=== PATIENT | female | born 1960 | race Caucasian/White ===

== ENCOUNTER 2021-09-26 04:01 | Inpatient (IN) | payer MEDICARE, SELFPAY ==
[2021-09-26] VITALS (47 sets, daily range): BP systolic 111–160; BP diastolic 55–142; PULSE 78–111; RESP 14–35; TEMP 36.1–37.6; O2SAT 89–99; BMI 27.4
--- NOTE | ~2021-09-26 | XR_ITS ---
XR chest 1V portable DATE: 09/26/2021 05:19 INDICATION: Hypoxia, respiratory distress. Cough. TECHNIQUE: Portable upright AP chest on 09/26/2021 at 0508 hours COMPARISON: None FINDINGS: Normal heart size. The lungs appear mildly hyperinflated but clear of infiltrate or consoli dation. No pulmonary infiltrate or consolidation, pleural effusion or pulmonary vascular congestion o r pneumothorax. Osteopenia. IMPRESSION: No active cardiopulmonary disease Reviewed, dictated and finalized at location A.
--- NOTE | 2021-09-26 04:18 | ECG_ITS ---
Measurements Intervals [place] Rate: 97 P: 62 MS: 141 QRS: -1 QRSD: 88 T: 70 QT: 325 QTc: 414 Interpretive Statements SINUS RHYTHM POSSIBLE LEFT ATRIAL ENLARGEMENT RSR' IN V1 OR V2, PROBABLY NORMAL VARIANT BASELINE ARTIFACT- I, II, III, AVR, AVL, AVF, V6 BORDERLINE ECG Electronically Signed On 09-26-2021 7:49:22 CDT by Lester Engle D.O.
--- NOTE | 2021-09-26 04:22 | ED.SOB ---
HPI - SOB/Dyspnea General Chief Complaint: Shortness of Breath/Dyspnea Stated Complaint: SOB Time Seen by Provider: 09/26/21 04:18 History of Present Illness HPI Narrative: 61-year-old female presents here stating that she caught a cold about 2 days ago, has been having a cough, and steadily has been having more difficulty breathing, before she finally came in here. She states that this happens several times a year where she needs to be admitted for treatment. Endorses some chest tightness and wheezing but no nausea or vomiting, does have some chills, no lower extremity swelling or pain. Related Data Allergies Allergy/AdvReac Type Severity Reaction Status Date / Time Penicillins Allergy Unknown Verified 09/26/21 04:11 Review of Systems Review of Systems: CONST: Chills. HEENT: No sore throat C/V: Chest tightness RESP: Cough and difficulty breathing GI: No nausea or vomiting : No dysuria. M/S: No joint pain. SKIN: No rash. NEURO: [No headache or focal numbness or weakness] PSYCH: [No depression] [facility] Past Medical History Medical History (Updated 09/26/21 @ 04:37 by Danay Boone MD) COPD (chronic obstructive pulmonary disease) Social History Social History (Updated 09/26/21 @ 04:25 by Danay Boone MD) Smoking status: Current every day smoker Exam Narrative: EXAMINATION OF ORGAN SYSTEMS/BODY AREAS: Constitutional: Vital signs per nursing GENERAL: Tachypneic but otherwise nontoxic-appearing HEAD: Normal with no signs of head trauma. EYES: EOMI, conjunctiva normal ENT: Hearing grossly intact LUNGS: Wheezing all lung garcia HEART: Slightly tachycardic ABD: [Soft], [nontender to palpation] EXT: Normal range of motion SKIN: [No rashes or lesions.] NEURO: [Alert and oriented x 3. No gross focal sensory or strength deficits.] PSYCH: Normal affect Course Vital Signs Vital signs: Vital Signs Temperature 99.6 F 09/26/21 04:01 Pulse Rate 102 H 09/26/21 04:01 Respiratory Rate 34 H 09/26/21 04:01 Blood Pressure 128/64 09/26/21 04:01 Pulse Oximetry 94 09/26/21 04:01 Oxygen Delivery Nasal Cannula 09/26/21 04:01 Oxygen Flow Rate 4 09/26/21 04:01 Temperature 99.6 F 09/26/21 04:01 Pulse Rate 105 H 09/26/21 05:48 Respiratory Rate 25 H 09/26/21 05:48 Blood Pressure 129/67 09/26/21 04:46 Pulse Oximetry 96 09/26/21 04:46 Oxygen Delivery Nasal Cannula 09/26/21 04:08 Oxygen Flow Rate 4 09/26/21 04:08 MDM - SOB/Dyspnea MDM Narrative Medical decision making narrative: ED COURSE AND MEDICAL DECISION MAKIN-year-old female with acute dyspnea and wheezing likely due to acute COPD exacerbation based on history and exam. Doubt ACS/CT without chest pain, I also suspect possible pneumonia, doubt PE given more likely other cause with her wheezing. Patient is hypoxic on room air and placed on oxygen. Nebulizer treatments and magnesium are started and steroids were given by EMS. Pulse oximetry interpretation: hypoxic. Discussed with hospitalist Dr Pryor for admission. Lab Data Result diagrams: 09/26/21 04:49 09/26/21 04:49 Labs: Lab Results 09/26/21 09/26/21 09/26/21 Range/Units 04:49 04:49 04:49 WBC 7.6 (4.5-10.0) K/mm3 RBC 5.42 H (4.2-5.4) M/mm3 Hgb 13.1 (12.0-15.0) g/dL Hct 43.0 (37.0-47.0) % MCV 79.3 L (80-100) fl MCH 24.2 L (26-34) pg MCHC 30.5 L (32-36) g/dl RDW 15.3 H (11.5-14.5) % Plt Count 213 (150-375) k/mm3 MPV 9.6 (7.4-10.4) fl Immature Gran % (Auto) 0.4 (0-0.5) % Neut % (Auto) 46.1 (45.5-73.1) % Lymph % (Auto) 39.8 (18.3-44.2) % [place] % (Auto) 12.4 H (2.6-8.5) % Eos % (Auto) 0.4 (0-4.4) % Baso % (Auto) 0.9 (0.2-1.2) % Lymph # (Auto) 3.03 (0.9-3.2) K/mm3 [place] # (Auto) 0.9 H (0.1-0.6) K/mm3 Eos # (Auto) 0.0 (0-0.3) K/mm3 Baso # (Auto) 0.1 (0.0-0.1) K/mm3 Abs Immat Gran (auto) 0.03 (0.00-0.031) K/mm3 Absolu
[2021-09-26] MEDS: predniSONE 20 MG TABLET 60 MG PO (04:23)
[2021-09-26] MEDS: IPRATROPIUM BR 0.02% INH SOLN 0.5 MG/2.5 ML VIAL 1 MG INHALATION (04:26)
[2021-09-26] MEDS: ALBUTEROL SULFATE NEB 2.5 MG/3 ML INH 15 MG INHALATION (04:26)
[2021-09-26] MEDS: MAGNESIUM SULF 2 GM/WATER 50ML 2 GM/50 ML BAG IVPB (04:50)
[2021-09-26 04:55] LABS: Basophils Absolute Auto 0.1 K/mm3 (0.0-0.1); Basophils Percent Auto 0.9 % (0.2-1.2); Eosinophils Percent Auto 0.4 % (0-4.4); Hemoglobin 13.1 g/dL (12.0-15.0); Immature Granulocyte Absolute 0.03 K/mm3 (0.00-0.031); Immature Granulocyte Percent A 0.4 % (0-0.5); Lymphocytes Absolute Auto 3.03 K/mm3 (0.9-3.2); Lymphocytes Percent Auto 39.8 % (18.3-44.2); Mean Corpuscular HGB Conc 30.5 g/dl (32-36); Mean Corpuscular Hemoglobin 24.2 pg (26-34); Mean Corpuscular Volume 79.3 fl (80-100); Mean Platelet Volume 9.6 fl (7.4-10.4); Monocytes Absolute Auto 0.9 K/mm3 (0.1-0.6); Monocytes Percent Auto 12.4 % (2.6-8.5); Neutrophils Absolute Auto 3.5 K/mm3 (1.3-6.7); Neutrophils Percent Auto 46.1 % (45.5-73.1); Platelet Count Result 213 k/mm3 (150-375); Red Blood Count 5.42 M/mm3 (4.2-5.4); Red Cell Distribution Width 15.3 % (11.5-14.5); White Blood Count 7.6 K/mm3 (4.5-10.0)
[2021-09-26 05:04] LABS: Alanine Aminotransferase 147 U/L (6-35); Albumin Level 4.2 g/dL (3.5-5.1); Alkaline Phosphatase 166 U/L (38-126); Anion Gap 8 mmol/L (8-16); Aspartate Amino Transferase 78 U/L (14-36); Bilirubin,Total 0.7 mg/dL (0.2-1.3); Blood Urea Nitrogen 12 mg/dL (7-17); Carbon Dioxide 25 mmol/L (22-30); Chloride 106 mmol/L (98-107); Estimated CRCL calculation 46 ml/min; Estimated Glomerular Filt Rate 51; Glucose 134 mg/dL (65-110); Sodium 139 mmol/L (137-145)
[2021-09-26 05:13] LABS: NT Pro B Type Natriuretic Pept 332 pg/mL (5-100)
[2021-09-26 05:32] LABS: SARS-CoV-2 RNA PCR Negative
--- NOTE | 2021-09-26 08:38 | PM.IMHP ---
H&P: HPI History of Present Illness Date/Time: 09/26/21 08:38 Chief Complaint: shortness of breath Narrative: This is 61-year-old female who presents to the ED with increasing shortness of breath, cough since past 2-3 days. She states that started out with a cold symptoms approximately 2-3 days ago along with cough with whitish to yellowish expectoration. She started getting she wheezy and short of breath and hence came to the ED for evaluation. She was placed on oxygen arrival as her oxygen saturation was low at 89% on room air. She has been given breathing treatments and is currently feeling better. She also got a dose of magnesium sulfate done in the ER. She denies any chest pain or leg swelling. She reports he had COVID in January 2021 and was admitted where she was found to have PEs. She was placed on anticoagulants at the time and she took for 6 months and stopped in last July. No abdominal pain nausea vomiting. Review of Systems Review of Systems: - CONSTITUTIONAL: Denies weight loss, fever and chills. - HEENT: Denies changes in vision and hearing - RESPIRATORY: Reports SOB and cough. - CV: Denies palpitations and CP. - GI: Denies abdominal pain, nausea, vomiting and diarrhea. - : Denies dysuria and urinary frequency. - MSK: Denies myalgia and joint pain. - SKIN: Denies rash and pruritus. - NEUROLOGICAL: Denies headache and syncope. - PSYCHIATRIC: Denies recent changes in mood. Denies anxiety and depression. [facility] Past Medical History Medical History (Updated 09/26/21 @ 11:40 by Geovanny Arechiga MD) COPD (chronic obstructive pulmonary disease) Family History Family History (Updated 09/26/21 @ 10:24 by Sis Almendarez RN) Mother Pancreatic cancer Father Myocardial infarct Grandparent Throat cancer Social History Social History (Updated 09/26/21 @ 04:25 by Danay Boone MD) Smoking packs per day: 1 Smoking cigarettes per day: 20.0 Years smoked: 45 Smoking pack-years: 45.00 Smoking status: Current every day smoker Tobacco type: e-cigarettes/vaping Second hand tobacco smoke exposure: Yes ( whole life ) Alcohol intake: never Substance use: never Substance use type: does not use Spiritual care concerns: No Meds Home Medications and Allergies Home Medications Medication Instructions Recorded Confirmed Type albuterol sulfate 90 mcg/actuation 90 inh inhalation TID PRN 09/26/21 09/26/21 History aerosol inhaler shortness of breath clonazepam 1 mg tablet 1 tablet PO DAILY PRN Anxiety 09/26/21 09/26/21 History fluticasone furoate 200 1 ea inhalation DAILY 09/26/21 09/26/21 History mcg-vilanterol 25 mcg/dose inhalation powder (Breo Ellipta) ipratropium 20 mcg-albuterol 100 1 spray inhalation QID PRN 09/26/21 09/26/21 History mcg/actuation mist for inhalation Shortness Of Breath (Combivent Respimat) levothyroxine 75 mcg tablet 75 mcg PO QAM 09/26/21 09/26/21 History Allergies Allergy/AdvReac Type Severity Reaction Status Date / Time Penicillins Allergy Unknown Verified 09/26/21 04:11 Vital Signs Vital Signs - 24 hr 09/26/21 04:01 09/26/21 04:08 09/26/21 04:08 Temperature 99.6 F Pulse Rate 102 H Respiratory Rate 34 H Blood Pressure 128/64 Pulse Oximetry 94 94 94 Oxygen Delivery Nasal Cannula Nasal Cannula Nasal Cannula Oxygen Flow Rate 4 4 4 09/26/21 04:09 09/26/21 04:10 09/26/21 04:30 Temperature Pulse Rate 101 H 98 96 Respiratory Rate 35 H 27 H Blood Pressure 128/64 Pulse Oximetry 94 Oxygen Delivery Oxygen Flow Rate 09/26/21 04:18 09/26/21 04:30 09/26/21 04:31 Temperature Pulse Rate 96 95 96 Respiratory Rate 31 H 26 H 22 H Blood Pressure 160/142 H Pulse Oximetry 95 94 97 Oxygen Delivery Oxygen Flow Rate 09/26/21 04:45 09/26/21 04:46 09/26/21 05:48 Temperature Pulse Rate 97 99 105 H Respiratory Rate 27 H 31 H 25 H Blood Pressure 129
--- NOTE | 2021-09-26 09:35 | PC.NURSE ---
Patient care report called to TRACIE Rueda. All questions answered at this time.
--- NOTE | 2021-09-26 10:19 | ADMGEN ---
This patient, Jacque Crum, was admitted to [address] [place] [address] Room 307-01 at 1005 per wheelchair. Patient/family oriented to hospital policies and general routines including ID bracelet, bed and alarms, visiting hours, pain management, procedures, bathroom and other care routines, personal items, smoking policy, room service/diet, and visiting hours. Information on how to activate the Rapid Response Team has been discussed. Patient/Family are encouraged to report perceived risks to care and to ask questions if they do not understand what they are told or what they should do.
--- NOTE | 2021-09-26 11:02 | PCRCNOTE ---
Pt was being admitted from ED when I asked if she wanted her tx. She said it will have to wait. No c/o SOB or wheezing. Will continue on schedule at 1400.
[2021-09-26] MEDS: methylPREDNISolone SOD SUCC 40 MG VIAL IV PUSH ×2 (14:25→21:13)
[2021-09-26] MEDS: IPRATROPIUM BR 0.02% INH SOLN 0.5 MG/2.5 ML VIAL INHALATION ×2 (14:59→19:52)
[2021-09-26] MEDS: ALBUTEROL SULFATE NEB 2.5 MG/3 ML INH 5 MG INHALATION ×2 (14:59→19:52)
[2021-09-26 16:59] LABS: Influenza Control Positive
[2021-09-26] MEDS: FLUTICASONE/SALMETEROL 230-21 MCG INHALER 1 PUFF 2 PUFF INHALATION (19:58)
[2021-09-27] VITALS (12 sets, daily range): BP systolic 105–131; BP diastolic 49–53; PULSE 68–94; RESP 18; TEMP 36.4–36.6; O2SAT 93–97
[2021-09-27] MEDS: ALBUTEROL SULFATE NEB 2.5 MG/3 ML INH 5 MG INHALATION ×4 (01:40→20:44)
[2021-09-27] MEDS: IPRATROPIUM BR 0.02% INH SOLN 0.5 MG/2.5 ML VIAL INHALATION ×4 (01:40→20:44)
[2021-09-27] MEDS: methylPREDNISolone SOD SUCC 40 MG VIAL IV PUSH ×3 (06:10→20:35)
[2021-09-27] MEDS: LEVOTHYROXINE SODIUM 75 MCG TABLET PO (06:10)
[2021-09-27 06:27] LABS: Hematocrit 42.6 % (37.0-47.0); Mean Corpuscular HGB Conc 30.5 g/dl (32-36); Mean Corpuscular Hemoglobin 24.3 pg (26-34); Mean Corpuscular Volume 79.5 fl (80-100); Mean Platelet Volume 9.8 fl (7.4-10.4); Platelet Count Result 234 k/mm3 (150-375); Red Blood Count 5.36 M/mm3 (4.2-5.4); Red Cell Distribution Width 15.3 % (11.5-14.5)
[2021-09-27 06:47] LABS: Alanine Aminotransferase 107 U/L (6-35); Albumin Level 4.1 g/dL (3.5-5.1); Alkaline Phosphatase 131 U/L (38-126); Anion Gap 6 mmol/L (8-16); Aspartate Amino Transferase 38 U/L (14-36); Bilirubin,Total 0.1 mg/dL (0.2-1.3); Blood Urea Nitrogen 20 mg/dL (7-17); Calcium 9.4 mg/dL (8.4-10.2); Carbon Dioxide 25 mmol/L (22-30); Chloride 106 mmol/L (98-107); Estimated CRCL calculation 46 ml/min; Estimated Glomerular Filt Rate 51; Glucose 159 mg/dL (65-110); Potassium 3.9 mmol/L (3.4-5.0); Sodium 137 mmol/L (137-145)
[2021-09-27 07:44] LABS: Band Neutrophils Percent 20 % (0-6); Lymphocytes Absolute Manual 1.87 K/mm3 (1.1-4.5); Metamyelocytes Percent 3 %; Monocytes Absolute Manual 0.11 K/mm3 (0.1-0.90); Monocytes Percent Manual 1 % (3-9); Myelocytes Percent 1 %; Neutrophils Absolute Manual 8.58 K/mm3 (1.7-7.2); Neutrophils Percent Manual 58 % (46-73); Platelet Estimate Adequate (Adequate); Total Cells Counted 100
[2021-09-27] MEDS: FLUTICASONE/SALMETEROL 230-21 MCG INHALER 1 PUFF 2 PUFF INHALATION ×2 (08:01→20:43)
--- NOTE | 2021-09-27 12:50 | PM.IMPN ---
Progress Note: A&P Assessment and Plan (1) Acute respiratory failure with hypoxia: Code(s): J96.01 - Acute respiratory failure with hypoxia Status: Acute (2) COPD (chronic obstructive pulmonary disease): Code(s): J44.9 - Chronic obstructive pulmonary disease, unspecified Status: Acute (3) Elevated liver enzymes: Code(s): R74.8 - Abnormal levels of other serum enzymes Status: Acute Plan Acute hypoxic respiratory failure: 89% on room air arrival to the ED oxygen supplementation. Wean oxygen as tolerated Acute COPD exacerbation IV steroid bronchodilators azithromycin. Sputum culture pending. At [place] inhalation and Mucinex Current tobacco use counseled on smoking cessation for 5 minutes History of PE January 2021 related to COVID treated with anticoagulants for 6 months and stopped Elevated liver enzymes unclear etiology will check right upper quadrant ultrasound Hypothyroidism levothyroxine Anxiety disorder DVT prophylaxis Lovenox Code status full code Subjective Date/time seen: 09/27/21 12:50 Interval history: Feeling better. Walking in the hallways. Still wheezy. Denies any chest pain. Refuse Lovenox. Exam Narrative: GENERAL: The patient is well developed, not in acute distress HEENT: Nonicteric sclerae, PERRLA, EOMI. Oropharynx clear. Moist mucous membranes. Conjunctivae appear well perfused. CHEST: Chest wall is nontender. HEART: Regular rate and rhythm without murmur, rubs, or gallops LUNGS: Coarse breath sounds bilaterally. no respiratory distress bilateral wheezes diffusely present ABDOMEN: Soft, positive bowel sounds, non-tender, no organomegaly. SKIN: No rash, no excessive bruising, petechiae, or purpura. NEUROLOGIC: Cranial nerves II-XII intact, alert and oriented x 3, no gross motor deficits EXTREMITIES: no edema, cyanosis or clubbing Objective Data Vital Signs Vital Signs: Vital Signs - 24 hr 09/26/21 14:00 09/26/21 15:00 09/26/21 15:00 Temperature 97.7 F Pulse Rate 81 79 Respiratory Rate 20 20 Blood Pressure 125/57 L Pulse Oximetry 91 93 Oxygen Delivery Nasal Cannula Oxygen Flow Rate 2 09/26/21 15:05 09/26/21 19:54 09/26/21 22:00 Temperature 98.3 F Pulse Rate 84 83 78 Respiratory Rate 20 18 18 Blood Pressure 120/56 L Pulse Oximetry 95 Oxygen Delivery Oxygen Flow Rate 09/27/21 01:41 09/26/21 20:18 09/26/21 19:55 Temperature Pulse Rate 68 89 Respiratory Rate 18 18 Blood Pressure Pulse Oximetry 95 Oxygen Delivery Nasal Cannula Oxygen Flow Rate 2 09/27/21 06:00 09/27/21 08:01 09/27/21 07:55 Temperature 97.6 F Pulse Rate 80 72 Respiratory Rate 18 18 Blood Pressure 131/49 L Pulse Oximetry 93 95 Oxygen Delivery Nasal Cannula Oxygen Flow Rate 2 09/27/21 08:02 09/27/21 08:00 Temperature Pulse Rate 73 73 Respiratory Rate 18 18 Blood Pressure Pulse Oximetry 95 Oxygen Delivery Nasal Cannula Oxygen Flow Rate 2 Intake/Output Intake/Output: Intake & Output 09/24/21 09/25/21 09/26/21 09/27/21 23:59 23:59 23:59 23:59 Intake Total 1770 540 Output Total 3 Balance 1767 540 Meds/Results Medications: Active Medications Generic Name Dose Route Start Last Admin Trade Name Freq PRN Reason Stop Dose Admin Albuterol 5 mg 09/26/21 08:00 09/27/21 08:01 Albuterol Sulfate Neb 2.5 Mg/3 Ml Inh INHALATION 5 mg Q6HRT CAPRI Administration Albuterol 1 puff 09/26/21 11:30 Albuterol Sulfate (*Sp) Aerosol 1 Puff INHALATION TID PRN shortness of breath Clonazepam 1 mg 09/26/21 11:30 Clonazepam (*Crx) 0.5 Mg Tablet PO DAILY PRN Anxiety Enoxaparin Sodium 40 mg 09/27/21 09:00 09/27/21 08:34 Enoxaparin 40 Mg/0.4 Ml Syringe SUB-Q Not Given DAILY CAPRI Azithromycin 500 mg in 250 mls @ 250 mls/hr 09/26/21 14:00 09/26/21 14:25 Zithromax IVPB 250 mls/hr Q24H CAPRI Administration Ipratropium [place] 0.5 mg
--- NOTE | 2021-09-27 18:06 | PC.NURSE ---
all med passed by Renee Breeding this shift.
[2021-09-27] MEDS: guaiFENesin 12 HR 600 MG TABCR 1200 MG PO (20:35)
[2021-09-28] VITALS (10 sets, daily range): BP systolic 111–131; BP diastolic 60–66; PULSE 64–106; RESP 18–20; TEMP 36.5–36.8; O2SAT 92–100
[2021-09-28] MEDS: clonazePAM (*CRX) 0.5 MG TABLET 1 MG PO (05:05)
[2021-09-28] MEDS: diphenhydrAMINE HCl INJ 50 MG/ML VIAL 25 MG IV PUSH (05:35)
[2021-09-28] MEDS: LEVOTHYROXINE SODIUM 75 MCG TABLET PO (05:35)
[2021-09-28] MEDS: methylPREDNISolone SOD SUCC 40 MG VIAL IV PUSH (05:35)
[2021-09-28 07:04] LABS: Basophils Percent Auto 0.2 % (0.2-1.2); Hematocrit 37.7 % (37.0-47.0); Hemoglobin 11.7 g/dL (12.0-15.0); Immature Granulocyte Percent A 1.5 % (0-0.5); Lymphocytes Absolute Auto 1.71 K/mm3 (0.9-3.2); Lymphocytes Percent Auto 12.4 % (18.3-44.2); Mean Corpuscular Hemoglobin 24.5 pg (26-34); Mean Corpuscular Volume 78.9 fl (80-100); Monocytes Absolute Auto 0.7 K/mm3 (0.1-0.6); Monocytes Percent Auto 5.4 % (2.6-8.5); Neutrophils Absolute Auto 11.1 K/mm3 (1.3-6.7); Neutrophils Percent Auto 80.5 % (45.5-73.1); Platelet Count Result 261 k/mm3 (150-375); Red Blood Count 4.78 M/mm3 (4.2-5.4); Red Cell Distribution Width 15.4 % (11.5-14.5); White Blood Count 13.7 K/mm3 (4.5-10.0)
[2021-09-28 07:11] LABS: Alanine Aminotransferase 131 U/L (6-35); Albumin Level 3.5 g/dL (3.5-5.1); Alkaline Phosphatase 120 U/L (38-126); Anion Gap 3 mmol/L (8-16); Aspartate Amino Transferase 55 U/L (14-36); Bilirubin,Total < 0.1 mg/dL (0.2-1.3); Blood Urea Nitrogen 27 mg/dL (7-17); Calcium 8.9 mg/dL (8.4-10.2); Carbon Dioxide 29 mmol/L (22-30); Chloride 105 mmol/L (98-107); Estimated CRCL calculation 46 ml/min; Estimated Glomerular Filt Rate 51; Glucose 130 mg/dL (65-110); Potassium 5.2 mmol/L (3.4-5.0); Sodium 137 mmol/L (137-145)
[2021-09-28] MEDS: IPRATROPIUM BR 0.02% INH SOLN 0.5 MG/2.5 ML VIAL INHALATION ×3 (08:10→21:00)
[2021-09-28] MEDS: FLUTICASONE/SALMETEROL 230-21 MCG INHALER 1 PUFF 2 PUFF INHALATION ×2 (08:10→21:00)
[2021-09-28] MEDS: ALBUTEROL SULFATE NEB 2.5 MG/3 ML INH 5 MG INHALATION ×3 (08:10→21:00)
[2021-09-28] MEDS: guaiFENesin 12 HR 600 MG TABCR 1200 MG PO ×2 (08:21→21:28)
--- NOTE | 2021-09-28 12:02 | PM.IMPN ---
Progress Note: A&P Assessment and Plan (1) Acute respiratory failure with hypoxia: Code(s): J96.01 - Acute respiratory failure with hypoxia Status: Acute (2) COPD (chronic obstructive pulmonary disease): Code(s): J44.9 - Chronic obstructive pulmonary disease, unspecified Status: Acute (3) Elevated liver enzymes: Code(s): R74.8 - Abnormal levels of other serum enzymes Status: Acute Plan Acute hypoxic respiratory failure: 89% on room air arrival to the ED oxygen supplementation. Wean oxygen as tolerated. Will do home oxygen evaluation. Acute COPD exacerbation IV steroid bronchodilators azithromycin. Sputum culture pending. Added Pulmozyme inhalation and Mucinex. Current tobacco use counseled on smoking cessation for 5 minutes History of PE January 2021 related to COVID treated with anticoagulants for 6 months and stopped Elevated liver enzymes unclear etiology. Right upper quadrant ultrasound refused Hypothyroidism levothyroxine Anxiety disorder DVT prophylaxis Lovenox Code status full code Ambulate and wean oxygen as tolerated. Home oxygen evaluation. Switch IV steroids to oral steroid today. If stable will discharge home tomorrow Subjective Date/time seen: 09/28/21 12:02 Interval history: Feeling better. She took herself off the oxygen and ambulated without any problem. Still wheezy she states she has always wheezy. Denies any chest pain. 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 Oropharynx clear. Moist mucous membranes. Conjunctivae appear well perfused. CHEST: Chest wall is nontender. HEART: Regular rate and rhythm without murmur, rubs, or gallops LUNGS: Coarse breath sounds bilaterally. no respiratory distress bilateral wheezes diffusely present ABDOMEN: Soft, positive bowel sounds, non-tender, no organomegaly. SKIN: No rash, no excessive bruising, petechiae, or purpura. NEUROLOGIC: Cranial nerves II-XII intact, alert and oriented x 3, no gross motor deficits EXTREMITIES: no edema, cyanosis or clubbing Objective Data Vital Signs Vital Signs: Vital Signs - 24 hr 09/27/21 13:50 09/27/21 13:57 09/27/21 14:00 Temperature 97.6 F Pulse Rate 73 75 94 Respiratory Rate 18 18 18 Blood Pressure 114/52 L Pulse Oximetry 93 Oxygen Delivery Oxygen Flow Rate 09/27/21 20:44 09/27/21 21:01 09/27/21 21:59 Temperature 97.9 F Pulse Rate 72 76 76 Respiratory Rate 18 18 18 Blood Pressure 105/53 L Pulse Oximetry 97 Oxygen Delivery Oxygen Flow Rate 09/28/21 05:55 09/28/21 08:00 09/28/21 08:12 Temperature 98.3 F Pulse Rate 83 83 64 Respiratory Rate 18 18 20 Blood Pressure 111/60 Pulse Oximetry 92 92 Oxygen Delivery Nasal Cannula Oxygen Flow Rate 2 09/28/21 08:20 Temperature Pulse Rate 68 Respiratory Rate 20 Blood Pressure Pulse Oximetry Oxygen Delivery Oxygen Flow Rate Intake/Output Intake/Output: Intake & Output 09/25/21 09/26/21 09/27/21 09/28/21 23:59 23:59 23:59 23:59 Intake Total 20190 690 Output Total 20160 690 Meds/Results Medications: Active Medications Generic Name Dose Route Start Last Admin Trade Name Freq PRN Reason Stop Dose Admin Albuterol 1 puff 09/26/21 11:30 Albuterol Sulfate (*Sp) Aerosol 1 Puff INHALATION TID PRN shortness of breath Albuterol 5 mg 09/27/21 14:00 09/28/21 08:10 Albuterol Sulfate Neb 2.5 Mg/3 Ml Inh INHALATION 5 mg [id number] CAPRI Administration Clonazepam 1 mg 09/26/21 11:30 09/28/21 05:05 Clonazepam (*Crx) 0.5 Mg Tablet PO 1 mg DAILY PRN Administration Anxiety Dornase [place] 2.5 mg 09/27/21 20:00 Dornase [place] Inh Soln 1 Mg/Ml 2.5 Ml
[2021-09-28] MEDS: predniSONE 20 MG TABLET 40 MG PO (16:22)
[2021-09-28] MEDS: DORNASE ALFA INH SOLN 1 MG/ML 2.5 ML AMP 2.5 MG INHALATION (21:00)
[2021-09-29] VITALS (8 sets, daily range): BP systolic 112; BP diastolic 57; PULSE 75–108; RESP 18–20; TEMP 36.2; O2SAT 90–93
[2021-09-29] MEDS: LEVOTHYROXINE SODIUM 75 MCG TABLET PO (05:47)
[2021-09-29 07:38] LABS: Basophils Absolute Auto 0.1 K/mm3 (0.0-0.1); Basophils Percent Auto 0.6 % (0.2-1.2); Hematocrit 38.5 % (37.0-47.0); Hemoglobin 11.8 g/dL (12.0-15.0); Immature Granulocyte Absolute 1.03 K/mm3 (0.00-0.031); Immature Granulocyte Percent A 6.3 % (0-0.5); Lymphocytes Absolute Auto 2.47 K/mm3 (0.9-3.2); Lymphocytes Percent Auto 15.2 % (18.3-44.2); Mean Corpuscular HGB Conc 30.6 g/dl (32-36); Mean Corpuscular Hemoglobin 24.3 pg (26-34); Mean Corpuscular Volume 79.4 fl (80-100); Mean Platelet Volume 9.6 fl (7.4-10.4); Monocytes Percent Auto 6.1 % (2.6-8.5); Neutrophils Absolute Auto 11.7 K/mm3 (1.3-6.7); Neutrophils Percent Auto 71.8 % (45.5-73.1); Platelet Count Result 278 k/mm3 (150-375); Red Blood Count 4.85 M/mm3 (4.2-5.4); Red Cell Distribution Width 15.9 % (11.5-14.5); White Blood Count 16.3 K/mm3 (4.5-10.0)
[2021-09-29 07:45] LABS: Alanine Aminotransferase 114 U/L (6-35); Albumin Level 3.6 g/dL (3.5-5.1); Alkaline Phosphatase 112 U/L (38-126); Anion Gap 2 mmol/L (8-16); Aspartate Amino Transferase 36 U/L (14-36); Bilirubin,Total < 0.1 mg/dL (0.2-1.3); Blood Urea Nitrogen 28 mg/dL (7-17); Calcium 8.8 mg/dL (8.4-10.2); Carbon Dioxide 29 mmol/L (22-30); Chloride 105 mmol/L (98-107); Estimated CRCL calculation 46 ml/min; Estimated Glomerular Filt Rate 51; Glucose 125 mg/dL (65-110); Magnesium 2.2 mg/dL (1.6-2.3); Potassium 4.3 mmol/L (3.4-5.0); Sodium 136 mmol/L (137-145)
[2021-09-29] MEDS: guaiFENesin 12 HR 600 MG TABCR 1200 MG PO (09:23)
[2021-09-29] MEDS: predniSONE 20 MG TABLET 40 MG PO (09:24)
[2021-09-29] MEDS: ALBUTEROL SULFATE NEB 2.5 MG/3 ML INH 5 MG INHALATION ×2 (09:43→14:33)
[2021-09-29] MEDS: IPRATROPIUM BR 0.02% INH SOLN 0.5 MG/2.5 ML VIAL INHALATION ×2 (09:43→14:33)
[2021-09-29] MEDS: FLUTICASONE/SALMETEROL 230-21 MCG INHALER 1 PUFF 2 PUFF INHALATION (09:49)
[2021-09-29] MEDS: DORNASE ALFA INH SOLN 1 MG/ML 2.5 ML AMP 2.5 MG INHALATION (09:49)
--- NOTE | 2021-09-29 10:53 | HOMEO2EVAL ---
Evaluation was performed at [facility] Home Oxygen Evaluation RC: Home Oxygen (O2) Evaluation Start: 09/28/21 12:05 Freq: ONCE Status: Active Protocol: RPE Activity Type Activity Date Activity User E-sign Co-sign Detail Recorded Client Recorded Date Recorded By Document 09/29/21 09:30 VILLA [id number] 09/29/21 10:53 VILLA Document 09/29/21 09:35 VILLA [email or web address] 09/29/21 10:53 VILLA Document 09/29/21 09:45 VILLA [id number] 09/29/21 10:53 VILLA 09/29/21 09/29/21 09/29/21 09:30 09:35 09:45 Home O2 Evaluation Test Phase Resting Exercise Resting Oxygen Delivery Room Air Room Air Room Air Pulse Oximetry (90-100 %) 92 90 93 Pulse Rate (60-100 beats/min) 89 108 H 83 Activity Tolerance Excellent Home Oxygen Evaluation Comments NO HOME O2 REQUIRED Treatment Charges O2 Evaluation - Inpatient
--- NOTE | 2021-09-29 10:53 | PCRCNOTE ---
HOME O2 EVAL COMPLETED. NO HOME O2 REQUIRED AT THIS TIME. RN NOTIFIED.
--- NOTE | 2021-09-29 11:16 | PM.DS ---
DS: Admitting Diagnosis Discharge Date 09/29/2021 Admitting Diagnosis Shortness of breath DS: Discharge Diagnosis Discharge Diagnosis (1) Acute respiratory failure with hypoxia: Code(s): J96.01 - Acute respiratory failure with hypoxia Status: Acute (2) COPD (chronic obstructive pulmonary disease): Code(s): J44.9 - Chronic obstructive pulmonary disease, unspecified Status: Acute (3) Elevated liver enzymes: Code(s): R74.8 - Abnormal levels of other serum enzymes Status: Acute Plan # Acute hypoxic respiratory failure: 89% on room air arrival to the ED oxygen supplementation. Wean oxygen as tolerated. At the time of discharge home oxygen evaluation was done and she did not require any oxygen for discharge. # Acute COPD exacerbation IV steroid bronchodilators azithromycin. Sputum culture could not be obtained due to no sputum production. Added Pulmozyme inhalation and Mucinex. Clinically improved with treatment was switched to oral steroids. She will complete azithromycin at discharge. Steroid taper as ordered # Current tobacco use counseled on smoking cessation for 5 minutes # History of PE January 2021 related to COVID treated with anticoagulants for 6 months and stopped # Elevated liver enzymes unclear etiology. Right upper quadrant ultrasound refused # Hypothyroidism levothyroxine # Anxiety disorder # DVT prophylaxis Lovenox # Code status full code DS: Summary Hospital Course Hospital Course: See above Time Spent with Patient Time attestation: Total time spent providing and/or coordinating discharge services: 40 minutes Exam Narrative: GENERAL: The patient is well developed, not in acute distress HEENT: Nonicteric sclerae, PERRLA, EOMI. Oropharynx clear. Moist mucous membranes. Conjunctivae appear well perfused. CHEST: Chest wall is nontender. HEART: Regular rate and rhythm without murmur, rubs, or gallops LUNGS: Coarse breath sounds bilaterally. no respiratory distress bilateral wheezes diffusely present ABDOMEN: Soft, positive bowel sounds, non-tender, no organomegaly. SKIN: No rash, no excessive bruising, petechiae, or purpura. NEUROLOGIC: Cranial nerves II-XII intact, alert and oriented x 3, no gross motor deficits EXTREMITIES: no edema, cyanosis or clubbing DS: Data Data Completed and Pending Labs on day of discharge: Labs from last 24 hours 09/29/21 09/29/21 06:45 06:45 WBC 16.3 H RBC 4.85 Hgb 11.8 L Hct 38.5 MCV 79.4 L MCH 24.3 L MCHC 30.6 L RDW 15.9 H Plt Count 278 MPV 9.6 Immature Gran % (Auto) 6.3 H Neut % (Auto) 71.8 Lymph % (Auto) 15.2 L [place] % (Auto) 6.1 Eos % (Auto) 0.0 Baso % (Auto) 0.6 Lymph # (Auto) 2.47 [place] # (Auto) 1.0 H Eos # (Auto) 0.0 Baso # (Auto) 0.1 Abs Immat Gran (auto) 1.03 H Absolute Neuts (auto) 11.7 H Absolute Nucleated RBC 0.0 Nucleated RBC % 0.0 Sodium 136 L Potassium 4.3 Chloride 105 Carbon Dioxide 29 Anion Gap 2 L BUN 28 H Creatinine 1.10 H Estim Creat Clear Calc 46 Estimated GFR 51 L Glucose 125 H Calcium 8.8 Magnesium 2.2 Total Bilirubin < 0.1 L AST 36 ALT 114 H Alkaline Phosphatase 112 Total Protein 7.0 Albumin 3.6 Imaging Radiologist's impression: ITS Impressions Chest X-Ray 09/26/21 10:10 IMPRESSION: No active cardiopulmonary disease Discharge Plan Discharge Attending physician on discharge: Geovanny Arechiga Discharging Clinician: Geovanny Arechiga Anticipated Discharge Date/Time: 09/29/21 11:11 Patient Disposition: Home, Self-Care Activity: as tolerated Diet: heart healthy Patient Instructions: Antibiotic Form Stand Alone Forms: General Discharge Information Follow-up/Referrals: PHYSICIAN NOT ON STAFF,NONSTAFF [Primary Care Provider] - (as scheduled) Discharge Medications: New guaifenesin [Mucus Relief ER] 600 mg Tablet Extended Release 12hr 1,200 mg PO
--- NOTE | 2021-09-29 16:50 | PCCCNOTE ---
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 Cab voucher provided
== END 2021-09-29 17:30 | disposition home or self-care (01) | DRG 190 ==
LOC: ANHED 05:01 → ANH3MEDSUR 08:36
PROVIDERS: Admitting Provider Internal Medicine; Emergency Provider Emergency Medicine; Visit Provider Internal Medicine
DX: J44.1 Chronic obstructive pulmonary disease with (acute) exacerbation (principal); J96.01 Acute respiratory failure with hypoxia; Z20.822 Contact with and (suspected) exposure to COVID-19; R74.8 Abnormal levels of other serum enzymes; F17.210 Nicotine dependence, cigarettes, uncomplicated; E03.9 Hypothyroidism, unspecified; F41.9 Anxiety disorder, unspecified; Z79.899 Other long term (current) drug therapy; Z88.0 Allergy status to penicillin; Z86.16 Personal history of COVID-19; Z86.711 Personal history of pulmonary embolism
CPT/HCPCS: 36415; 71045; 80053; 83735; 83880; 85025; 87070; 87077; 87185; 87205; 87804; 93005; 94618; 94640; 96365; 96366; 96367; 96375; 96376; 99285; A9270; C9803; G0378; J0456; J1200; J2920; J3475; J7512; U0003; U0005